=== PATIENT | female | born 1975 | race African-American/Black ===

== ENCOUNTER 2017-11-06 09:03 | Emergency (ER) | payer OTHER ==
[~2017-11-06] VITALS: Ht 167.6 cm; Wt 121.7 kg
[~2017-11-06 09:03] MED LIST: CIPRO500 MG PO; DIFLUCAN150 MG PO; FLOMAX0.4 MG PO; GILDESS FE 1-21 EACH PO; GLUCOPHAGE1000 MG PO; HYDROCODON-ACE1 EAC7 PO; JUNEL1 EACH PO; KEFLEX500 MG PO; MICROZIDE12.5 M1 PO; NAPROSYN500 MG PO; NORCO 5/3251 TABLET PO; PERCOCET 5/31 TABLET PO; TORADOL10 MG PO; ZOFRAN4 MG PO
[2017-11-06 09:35] LABS: HEMATOCRIT 40.8 % (36.0-46.0); MCH 29.3 PG (29.0-34.0); MCHC 33.1 G/DL (30.0-36.0); MCV 88.7 FL (83-99); MEAN PLAT.VOLUME 9.6 uM^3 (9.5-12.4); PLATELET COUNT 429 K/uL (156-360); RBC DIS.WIDTH-CV 13.5 % (11.8-14.6); WHITE BLOOD COUNT 7.7 K/uL (4.1-10.2)
[2017-11-06 09:35] LABS: ADD MIUA? YES; BILIRUBIN NEGATIVE; BLOOD SMALL; COLOR YELLOW ((YELLOW)); GLUCOSE (STRIP) NEGATIVE; KETONES NEGATIVE; LEUKOCYTES NEGATIVE; NITRITE NEGATIVE; PROTEIN (STRIP) NEGATIVE; SPECIFIC GRAVITY 1.018 (1.000-1.030); UROBILINOGEN 0.2 MG/DL (0.2-1.0)
[2017-11-06 09:45] LABS: BACTERIA RARE /HPF; EPITHELIAL CELLS 2+ /HPF; MUCUS TRACE /LPF; RED BLOOD CELLS 0-5 /HPF (0-5); UCUL ADDED? NO; WHITE BLOOD CELLS 0-5 /HPF (0-5)
[2017-11-06 09:45] LABS: CHLORIDE 102 mEq/L (99-109); POTASSIUM 3.9 mEq/L (3.7-5.4); SODIUM 138 mEq/L (136-147)
[2017-11-06 09:47] LABS: GLUCOSE 123 mg/dL (70-99)
[2017-11-06 09:48] LABS: ANION GAP 10 MEQ/L (2-14)
[2017-11-06 09:49] LABS: TOTAL BILIRUBIN 0.3 mg/dL (0.0-1.0)
[2017-11-06 09:50] LABS: ALKALINE PHOSPHATASE 74 IU/L (3-129)
[2017-11-06 09:51] LABS: GFR ESTIMATE (CALCULATED) > 59 mL/min/
[2017-11-06 09:52] LABS: UREA NITROGEN (BUN) 12 mg/dL (9-23)
[2017-11-06 10:01] LABS: QUANTITATIVE HCG < 4.0 MIU/ML
[2017-11-06 10:16] LABS: LIPASE 20 U/L (1.0-51.0)
[2017-11-06] MEDS ORDERED: MOTRIN600 MG PO (13:33)
[2017-11-06 13:48] VITALS: BP 145/73
== END 2017-11-06 13:49 | disposition home or self-care (01) ==
LOC: EME 09:03
DX: R10.11 Right upper quadrant pain (principal); I10 Essential (primary) hypertension; E66.9 Obesity, unspecified; Z87.442 Personal history of urinary calculi
CPT/HCPCS: 74177; 76705; 80053; 81003; 83690; 84702; 85027; 99281; 99284; J2270; J2405; J7030

== ENCOUNTER → 2017-12-23 | Outpatient (CLI) | payer BC ==
[~2017-12-23] MED LIST changes: +MOTRIN600 MG PO
== END | disposition home or self-care (01) ==
LOC: NUC 07:51
PROC: CF1C1ZZ Planar Nuclear Medicine Imaging of Hepatobiliary System, All using Technetium 99m (Tc-99m) (ICD-10-PCS; principal; 2017-12-23)
DX: R10.11 Right upper quadrant pain (principal)
CPT/HCPCS: 78227; A9537; J2805

== ENCOUNTER → 2018-01-17 | Outpatient (CLI) | payer BC ==
[~2018-01-17] VITALS: Ht 165.1 cm; Wt 120.6 kg
[~2018-01-17] MED LIST changes: +CRESTOR10 MG PO; -GLUCOPHAGE1000 MG PO; +HYDROCHLOROTHIA25 MG PO; +METFORMIN HCL500 M1 PO; -MICROZIDE12.5 M1 PO
== END | disposition home or self-care (01) ==
LOC: AMB 13:45
PROVIDERS: Internal Medicine
PROC: 0DJ08ZZ Inspection of Upper Intestinal Tract, Via Natural or Artificial Opening Endoscopic (ICD-10-PCS; principal; 2018-01-17)
DX: R10.11 Right upper quadrant pain (principal); K30 Functional dyspepsia; I10 Essential (primary) hypertension; E11.9 Type 2 diabetes mellitus without complications; E01.0 Iodine-deficiency related diffuse (endemic) goiter; Z79.84 Long term (current) use of oral hypoglycemic drugs
CPT/HCPCS: 82948; 93005; J2250; J2405